=== PATIENT | male | born 1950 | race Caucasian/White ===

== ENCOUNTER 2020-07-06 17:59 | Emergency (ER) | payer OTHER, MEDICARE ==
[~2020-07-06] VITALS: Ht 167.6 cm; Wt 90.8 kg
--- NOTE | 2020-07-06 19:10 | NUR ---
05/26/20 COMPLETE PACEMAKER REPLACEMENT 06/23/20 REPOSITION LOWER LEAD ON PACEMAKER
--- NOTE | 2020-07-06 19:13 | NUR ---
PACEMAKER INTEROGATED BY [employer].
[2020-07-06 20:10] LABS: BASOPHILS # (AUTO) 0.1 X10'3 (0-0.2); BASOPHILS % (AUTO) 0.6 % (0-1); EOSINOPHILS # (AUTO) 0.4 X10'3 (0-0.9); EOSINOPHILS % (AUTO) 3.9 % (0-6); HEMATOCRIT 48.5 % (42.0-52.0); HEMOGLOBIN 16.4 g/dl (14.0-17.9); LYMPHOCYTES # (AUTO) 2.7 X10'3 (1.1-4.8); MEAN CORPUSCULAR HEMOGLOBIN 32.6 PG (27.0-31.0); MEAN CORPUSCULAR HGB CONC 33.9 g/dL (33.0-36.5); MEAN CORPUSCULAR VOLUME 96.1 FL (78-98); MEAN PLATELET VOLUME 8.6 FL (7.4-10.4); MONOCYTES # (AUTO) 0.7 X10'3 (0-0.9); MONOCYTES % (AUTO) 8.2 % (2-12); NEUTROPHILS # (AUTO) 5.1 X10'3 (1.8-7.7); NEUTROPHILS % (AUTO) 57.3 % (42-75); PLATELET COUNT 275 X10'3 (140-440); RED BLOOD COUNT 5.05 X10'6 (4.70-6.10); RED CELL DISTRIBUTION WIDTH 14.4 % (11.5-14.5); WHITE BLOOD COUNT 8.9 X10'3 (4.5-11.0)
[2020-07-06 20:26] LABS: ALBUMIN 3.9 G/DL (3.4-5.0); ANION GAP 4 (8-16); BLOOD UREA NITROGEN 13 MG/DL (7-18); CALCIUM 9.6 MG/DL (8.5-10.1); CHLORIDE 107 MMOL/L (99-107); GLUCOSE 88 MG/DL (70-104); POTASSIUM 3.9 MMOL/L (3.5-5.1); SODIUM 141 MMOL/L (135-145); TOTAL CARBON DIOXIDE 29.8 MMOL/L (24-32); TROPONIN I < 0.04 NG/ML (0.0-0.05); eGFR 55 ML/MIN
[2020-07-06 21:14] VITALS: BP 168/84
== END 2020-07-06 21:17 | disposition home or self-care (01) ==
LOC: ER 18:02
DX: R07.89 Other chest pain (principal); E78.00 Pure hypercholesterolemia, unspecified; I10 Essential (primary) hypertension; E11.9 Type 2 diabetes mellitus without complications; Z95.0 Presence of cardiac pacemaker; Z98.84 Bariatric surgery status; Z88.0 Allergy status to penicillin
CPT/HCPCS: 36415; 71046; 80048; 84484; 85025; 93005; 99285

== ENCOUNTER 2025-01-08 11:06 | Outpatient (CLI) | payer OTHER ==
--- NOTE | 2025-01-08 17:45 | CARDIOLOGY REPORT ---
APPROVED REPORT EXAM: Comprehensive 2D, Doppler, and color-flow Echocardiogram. 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 122.8 cm/s AoV VTI 29.7 cm AO Peak GR. 6.0 mmHg AO Mean GR. 3 mmHg LVOT VTI 26.81 cm LVOT Peak Jorge. 102.3 cm/s KAREN (VMAX) 3.47 cm2 KAREN (VTI) 3.76 cm2 Mitral Valve MV E Velocity 73.5 cm/s MV DECEL TIME 168 ms MV A Velocity 87.1 cm/s MV PHT 45 ms E/A Ratio 0.8 MVA (PHT) 4.87 cm2 TDI E/Medial E' 14.3 Tricuspid Valve TR P. Velocity 264 cm/s RAP ESTIMATE 10 mmHg TR Peak Gr. 28 mmHg RVSP 38 mmHg Pulmonary Vein S2 Velocity 60.24 cm/s PVa [id number] msec LEFT VENTRICLE Normal LV size and function. Mild concentric hypertrophy. Overall LVEF is 60%. RIGHT VENTRICLE RV appears mildly dilated with normal contractility. RVSP is estimated at 38 mmHG. ATRIA Left atrium is moderately dilated. AORTIC VALVE Trileaflet AV appears sclerotic without stenosis. Trace insufficiency. MITRAL VALVE MV is thickened with mild annular thickening and no stenosis. Trace mitral regurgitation. TRICUSPID VALVE The tricuspid valve is normal in structure. Trace tricuspid regurgitation. PULMONIC VALVE The pulmonary valve is normal in structure. Trace pulmonic regurgitation. GREAT VESSELS The aortic root is normal in size. The ascending aorta is measured at 3.6 cm. The IVC is normal in si ze and collapses >50% with inspiration. PERICARDIUM There is no pericardial effusion. Other Information Study Quality: Adequate Conclusion Overall LVEF is 60%. Normal LV size and function. Mild concentric hypertrophy. RV appears mildly dilated with normal contractility. RVSP is estimated at 38 mmHG. Trileaflet AV appears sclerotic without stenosis. Trace insufficiency. Trace mitral regurgitation. Trace tricuspid regurgitation. Trace pulmonic regurgitation. There is no pericardial effusion.
== END 2025-01-08 23:59 | disposition home or self-care (01) ==
LOC: CARD DIAG 11:06
PROVIDERS: ATTEND Chiropractor
DX: I34.0 Nonrheumatic mitral (valve) insufficiency (principal); I51.7 Cardiomegaly; I25.10 Atherosclerotic heart disease of native coronary artery without angina pectoris
CPT/HCPCS: 93306